=== PATIENT | male | born 1935 ===

== ENCOUNTER 2019-01-21 07:24 | Day surgery (SDC) | payer MEDICARE, BC ==
[2019-01-21] MEDS ORDERED: Midazolam* 1 MG/ML 2 ML VIAL (2 MG) ONE (09:01)
[2019-01-21] MEDS ORDERED: Tropicamide 1% OPTH.SOL* BTL ONE (09:24)
[2019-01-21] MEDS ORDERED: Povidone Iodine 5% OPTH* 30 ML BTL ONE (09:24)
[2019-01-21] MEDS ORDERED: Tetracaine 0.5% OPTH.SOL 4 ML* 1 DROP BTL ONE (09:24)
[2019-01-21] MEDS ORDERED: Ketorolac 0.5% OPHTH (NF) 0.5 % 5 ML BTL ONE (09:24)
[2019-01-21] MEDS ORDERED: acetaZOLAMIDE TAB* 250 MG ONE (09:24)
[2019-01-21] MEDS ORDERED: Neomycin/Polymy/Dex OPHTH.OIN* 3.5 GM ONE (09:24)
[2019-01-21] MEDS ORDERED: Cyclopentolate 1% OPTH.SOL* 2 ML BTL ONE (09:24)
[2019-01-21] MEDS ORDERED: Lidocaine 1% MPF ** 5 ML VIAL ONE (09:24)
[2019-01-21] MEDS ORDERED: Phenylephrine OPHTH SOL 2.5%* 2 ML ONE (09:24)
[2019-01-21 10:11] VITALS: BP 161/63
--- NOTE | 2019-01-21 22:26 | OP ---
DATE OF OPERATION: 01/21/19 [facility] DATE OF : 35 SURGEON: Dutch Self MD. ANESTHESIA: Monitored anesthesia care. PREOPERATIVE DIAGNOSIS: Cataract, left eye. POSTOPERATIVE DIAGNOSIS: Cataract, left eye. OPERATIVE PROCEDURE: Extracapsular cataract extraction of the left eye, with intraocular lens implant. IMPLANT: SN6AT7 20.5 diopter lens to the left eye at 11 degrees. COMPLICATIONS: None. DESCRIPTION OF PROCEDURE: The patient was given phenylephrine 2.5 % and cyclopentolate 1% eye drops to the operative eye in the preoperative area. The patient was sat in the upright position and corneal markings were placed at 180 degrees and 0. The patient was taken to the operating room where a time-out was taken to identify the correct patient, site, and side of the surgery. The patient's left eye was prepped and draped in the usual sterile fashion with 5% Betadine. A second time-out was taken to verify the correct patient, side and site of surgery, and correct lens selection. A lid speculum was placed to the left eye. Corneal markings were placed at the 180-degree meridian. A 1 mm paracentesis blade was used to make a clear corneal incision in the inferotemporal position. Preservative- free 1% lidocaine was injected into the anterior chamber. DisCoVisc was then injected into the anterior chamber. A 2.75 mm keratome blade was used to make a triplanar incision at the superotemporal position. A cystotome initiated a capsulorrhexis, which was completed with Utrata forceps in a continuous and curvilinear manner. Hydrodissection of the lens was performed with BSS on a cannula. The lens could be spun in a capsular bag. The phacoemulsification handpiece was used with a [id number] technique to remove the nucleus. The I/A handpiece then removed the residual cortical lens material. Provisc was then injected to inflate the capsular bag. The ORA system was then used to confirm correct lens implant. Based upon recommendation from ORA, the SN6AT7 20.5 diopter lens was injected into the capsular bag and rotated to 11 degrees. The residual Provisc was removed from the eye with the I/A handpiece. The corneal incisions were hydrated and no leaks occurred at physiologic pressure of around 20 mmHg per palpation. The lid speculum was removed and drapes were removed. Maxitrol ointment was placed to the surface of the operative eye. An adhesive patch shield was then placed on the operative eye. The patient was taken to the postoperative area in stable condition. [id number]/[facility] #: [id number] MTDD
== END 2019-01-21 10:02 | disposition home or self-care (01) ==
LOC: OREAST 07:24
PROVIDERS: ATTEND Student in an Organized Health Care Education/Training Program
DX: H25.12 Age-related nuclear cataract, left eye (principal); H40.1131 Primary open-angle glaucoma, bilateral, mild stage; E11.9 Type 2 diabetes mellitus without complications; Z79.84 Long term (current) use of oral hypoglycemic drugs; I10 Essential (primary) hypertension; I25.10 Atherosclerotic heart disease of native coronary artery without angina pectoris; K21.9 Gastro-esophageal reflux disease without esophagitis; M19.90 Unspecified osteoarthritis, unspecified site; Z95.1 Presence of aortocoronary bypass graft; E78.5 Hyperlipidemia, unspecified
CPT/HCPCS: A9270-GY; J2250; V2787